=== PATIENT | female | born 1990 | race Two or more races ===

== ENCOUNTER 2018-03-01 06:00 | Outpatient (CLI) | payer OTHER ==
[2018-03-01] MEDS ORDERED: PRENATAL TABLE1 EAC1 PO (06:10)
== END 2018-03-01 11:11 | disposition home or self-care (01) ==
LOC: OBS/DEL 06:00
DX: O26.892 Other specified pregnancy related conditions, second trimester (principal); Z04.3 Encounter for examination and observation following other accident; Z34.02 Encounter for supervision of normal first pregnancy, second trimester; Y04.0XXA Assault by unarmed brawl or fight, initial encounter; Y93.89 Activity, other specified; Y92.89 Other specified places as the place of occurrence of the external cause; Y99.8 Other external cause status

== ENCOUNTER 2018-04-10 05:15 | Outpatient (CLI) | payer OTHER ==
[~2018-04-10 05:15] MED LIST: PRENATAL TABLE1 EAC1 PO
== END 2018-04-10 09:11 | disposition home or self-care (01) ==
LOC: OBS/DEL 05:15
DX: O60.03 Preterm labor without delivery, third trimester (principal); O26.893 Other specified pregnancy related conditions, third trimester; R25.2 Cramp and spasm; Z34.03 Encounter for supervision of normal first pregnancy, third trimester

== ENCOUNTER 2018-04-24 21:14 | Inpatient (IN) | payer OTHER ==
[~2018-04-24] VITALS: Ht 152.4 cm; Wt 68.0 kg
[2018-04-27] MEDS ORDERED: KEFLEX500 MG PO (08:33)
== END 2018-04-27 10:28 | disposition home or self-care (01) | DRG 833 ==
LOC: OBS/DEL 21:14 → LDR 04-25 11:16 → OBS/DEL 04-25 11:16 → OB/GYN 04-25 11:16
PROC: BY4FZZZ Ultrasonography of Third Trimester, Single Fetus (ICD-10-PCS; principal; 2018-04-25)
PROC: BU4CZZZ Ultrasonography of Uterus and Ovaries (ICD-10-PCS; 2018-04-25)
PROC: 4A1HXCZ Monitoring of Products of Conception, Cardiac Rate, External Approach (ICD-10-PCS; 2018-04-25)
DX: O23.43 Unspecified infection of urinary tract in pregnancy, third trimester (principal); O46.8X3 Other antepartum hemorrhage, third trimester; Z34.03 Encounter for supervision of normal first pregnancy, third trimester

== ENCOUNTER 2018-05-20 14:18 | Inpatient (IN) | payer OTHER ==
[~2018-05-20] VITALS: Ht 152.4 cm; Wt 3.2 kg
[~2018-05-20 14:18] MED LIST changes: +KEFLEX500 MG PO
[2018-05-30] MEDS ORDERED: MOTRIN IB200 MG PO (10:08)
== END 2018-05-30 15:30 | DRG 788 ==
LOC: LDR 05-27 04:58 → OB/GYN 05-27 04:58 → O/R 05-27 13:27 → OB/GYN 05-27 16:10 → LDR 05-30 15:00 → OB/GYN 05-30 15:30
PROVIDERS: Specialist
PROC: 4A1HXCZ Monitoring of Products of Conception, Cardiac Rate, External Approach (ICD-10-PCS; 2018-05-27)
PROC: 10D00Z1 Extraction of Products of Conception, Low, Open Approach (ICD-10-PCS; principal; 2018-05-27 13:00)
DX: O33.8 Maternal care for disproportion of other origin (principal); Z3A.39 39 weeks gestation of pregnancy; Z37.0 Single live birth